=== PATIENT | female | born 1990 | race African-American/Black ===

== ENCOUNTER 2024-10-24 00:03 | Emergency (ER) | payer MEDICAID ==
[~2024-10-24] VITALS: Ht 167.6 cm; Wt 72.0 kg
[2024-10-24 00:13] VITALS: O2SAT 100
[2024-10-24 00:16] VITALS: BP 126/82; PULSE 99; RESP 18; TEMP 36.6; O2SAT 100
[2024-10-24 01:01] LABS: BASOPHILS % 1.2 % (0.0-2.0); EOSINOPHILS % 3.0 % (0.0-5.0); HEMATOCRIT. 32.7 % (36.0-48.0); HEMOGLOBIN. 10.7 g/dL (12.0-16.0); LYMPHOCYTES % 22.2 % (20.0-50.0); MEAN PLATELET VOLUME 9.5 fl (7.4-10.4); MONOCYTES % 8.3 % (2.0-8.0); NEUTROPHILS % 65.3 % (40.0-76.0); PLATELET 330 x1000/uL (130-400); RED BLOOD CELL COUNT 4.10 mill/uL (4.2-5.4); RED CELL DISTRIBUTION WIDTH 16.7 % (11.6-14.6)
[2024-10-24 01:09] LABS: HCG SCREEN POSITIVE
[2024-10-24 01:14] LABS: CREATININE 0.8 mg/dL (0.6-1.0); UREA NITROGEN BLOOD 7 mg/dL (9-23)
[2024-10-24 01:16] LABS: ASPARTATE AMINOTRANSFERASE 17 IU/L (<34); BILIRUBIN DIRECT < 0.1 mg/dL (<=3.0)
[2024-10-24 01:17] LABS: BILIRUBIN TOTAL 0.2 mg/dL (0.1-1.0); PROTEIN TOTAL 8.0 g/dL (6.0-8.3)
[2024-10-24 01:18] LABS: CLARITY URINE CLEAR (CLEAR); COLOR URINE YELLOW (YELLOW); GLUCOSE URINE NEGATIVE (NEGATIVE); KETONES URINE NEGATIVE (NEGATIVE); LEUKOCYTE ESTERASE URINE NEGATIVE (NEGATIVE); NITRITE URINE NEGATIVE (NEGATIVE); OCCULT BLOOD URINE NEGATIVE (NEGATIVE); PH URINE 6.5 (4.5-8.0); PROTEIN URINE NEGATIVE (NEGATIVE); SPECIFIC GRAVITY URINE 1.008 (1.005-1.030); UROBILINOGEN URINE 0.2 E.U./dL (0.2-1.0)
[2024-10-24] MEDS: ACETAMINOPHEN 325MG TABLET PO ONE (01:35)
[2024-10-24] MEDS: METOCLOPRAMIDE HCL 10MG/2ML VIAL IM ONE (01:35)
[2024-10-24] MEDS ORDERED: POLY17PO3 MT (02:50)
[2024-10-24] MEDS ORDERED: FERR324T4 MT (02:50)
[2024-10-24] MEDS ORDERED: TOPUD MT (02:50)
== END 2024-10-24 03:20 | disposition left against medical advice (07) ==
LOC: ER 00:03
DX: O26.891 Other specified pregnancy related conditions, first trimester (principal); R10.30 Lower abdominal pain, unspecified; O99.011 Anemia complicating pregnancy, first trimester; R10.2 Pelvic and perineal pain; Z3A.08 8 weeks gestation of pregnancy
CPT/HCPCS: 36415; 76801; 80048; 80076; 81003; 81025; 84702; 84703; 85025; 86850; 86900; 99284; J2765